=== PATIENT | male | born 1990 | race Hispanic/Latino ===

== ENCOUNTER 2018-08-01 16:51 | Emergency (ER) | payer OTHER ==
[2018-08-01 16:55] VITALS: BP 118/71; PULSE 81; RESP 16; TEMP 97.8
[2018-08-01 16:56] VITALS: BMI 23.6
[2018-08-01 17:05] VITALS: O2SAT 98
--- NOTE | 2018-08-01 17:06 | ED PDOC ---
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 Past Medical History Reviewed: Historical Data, Nursing Documentation, Vital Signs Vital Signs: Last Vital Signs Temp 97.8 F 08/01/18 16:55 Pulse 81 08/01/18 16:55 Resp 16 08/01/18 16:55 BP 118/71 08/01/18 16:55 Pulse Ox 98 08/01/18 16:59 - Medical History PMH: No Chronic Diseases - Family History Family History: States: No Known Family Hx - Immunization History Hx Tetanus Toxoid Vaccination: Yes Hx Influenza Vaccination: Yes (2016) Hx Pneumococcal Vaccination: No - Home Medications Home Medications: Ambulatory Orders Medication Instructions Recorded Finasteride 0.5 mg PO DAILY 05/19/17 Ondansetron [Zofran Odt] 4 mg PO Q8 PRN #20 odt 05/19/17 Dolutegravir Sodium [Tivicay] 50 mg PO DAILY #3 tab 08/01/18 Emtricitabine/Tenofovir (Tdf) 1 each PO DAILY #2 tablet 08/01/18 [Truvada 200 mg-300 mg Tablet] Ondansetron ODT [Zofran ODT] 1 odt PO Q6 PRN #20 odt 08/01/18 - Allergies Allergies/Adverse Reactions: Allergies Allergy/AdvReac Type Severity Reaction Status Date / Time No Known Allergies Allergy Verified 08/01/18 16:56 Review of Systems Musculoskeletal: Negative for: Hand Pain Physical Exam - Reviewed Nursing Documentation Reviewed: Yes Vital Signs Reviewed: Yes - Physical Exam Appears: Positive for: Non-toxic, No Acute Distress Extremity: Positive for: Other (LEFT hand: 3rd digit distal phalanx with pinpoint needle stick hemostatic, no edema/erythema) Neurological/Psych: Negative for: Motor/Sensory Deficits - Laboratory Results Result Diagrams: 08/01/18 17:21 08/01/18 17:21 - ECG O2 Sat by Pulse Oximetry: 98 Disposition - Clinical Impression Clinical Impression: Needle stick injury - Disposition Disposition: Routine/Home Disposition Time: 18:01 Condition: STABLE Prescriptions: Dolutegravir Sodium [Tivicay] 50 mg PO DAILY #3 tab Emtricitabine/Tenofovir (Tdf) [Truvada 200 mg-300 mg Tablet] 1 each PO DAILY #2 tablet Ondansetron ODT [Zofran ODT] 1 odt PO Q6 PRN #20 odt PRN Reason: Nausea/Vomiting Instructions: Post-Exposure Prophylaxis
[2018-08-01 17:26] LABS: BASO # 0.1 K/uL (0.0-0.2); BASO % 0.8 % (0.0-2.0); EOS % 0.5 % (0.0-4.0); HEMOGLOBIN 14.5 g/dL (12.0-18.0); LYMPH # 2.1 K/uL (1.0-4.3); LYMPH % 24.4 % (20.0-40.0); MEAN CELL VOLUME 89.8 fl (80.0-94.0); MEAN CORPUSCULAR HEMOGLOBIN 30.9 pg (27.0-31.0); MEAN CORPUSCULAR HGB CONC 34.4 g/dL (33.0-37.0); MEAN PLATELET VOLUME 8.4 fl (7.2-11.7); MONO # 0.8 K/uL (0.0-0.8); MONO % 9.4 % (0.0-10.0); NEUT # 5.5 K/uL (1.8-7.0); NEUT % 64.9 % (50.0-75.0); NRBC % 0.2 % (0.0-0.0); RBC 4.69 Mil/uL (4.40-5.90); RED CELL DISTRIBUTION WIDTH 13.1 % (11.5-14.5); WHITE BLOOD COUNT 8.5 K/uL (4.8-10.8)
[2018-08-01 17:38] LABS: ALB/GLOB RATIO 1.7 (1.0-2.1); ALBUMIN 4.7 g/dL (3.5-5.0); ALT/SGPT 31 U/L (21-72); AMYLASE 70 U/L (30-110); AST/SGOT 37 U/L (17-59); BLOOD UREA NITROGEN 21 mg/dl (9-20); CALCIUM 9.9 mg/dL (8.4-10.2); GFR NON-AFRICAN AMERICAN > 60
[2018-08-01] MEDS ORDERED: Tetanus/Diphtheria Toxoids 0.5 ml Syringe IM ONE ×2 (17:56→18:11)
[2018-08-01] MEDS ORDERED: Emtricitabine-Tenofovir 200 mg-300 mg Tab PO STA (17:56)
[2018-08-01 18:29] LABS: URINE BILIRUBIN NEGATIVE (NEGATIVE); URINE BLOOD NEGATIVE (NEGATIVE); URINE CLARITY CLEAR (Clear); URINE COLOR YELLOW (YELLOW); URINE GLUCOSE (UA) NEG (NEGATIVE); URINE LEUKOCYTE ESTERASE NEG Leu/uL (Negative); URINE PROTEIN NEGATIVE (NEGATIVE); URINE UROBILINOGEN 0.2-1.0 mg/dL (0.2-1.0)
[2018-08-03 08:36] LABS: HEPATITIS B SURFACE AG Negative (NEGATIVE)
[2018-08-03 08:43] LABS: HEPATITIS A IGM NEGATIVE (NEGATIVE); HEPATITIS B CORE AB NEGATIVE (NEGATIVE)
[2018-08-03 08:53] LABS: HEPATITIS C ANTIBODY NEGATIVE (NEGATIVE)
== END 2018-08-01 19:25 | disposition home or self-care (01) ==
LOC: H.ER 16:51
DX: Z77.21 Contact with and (suspected) exposure to potentially hazardous body fluids (principal); Z79.899 Other long term (current) drug therapy; W46.0XXA Contact with hypodermic needle, initial encounter; Y99.0 Civilian activity done for income or pay; Z23 Encounter for immunization